=== PATIENT | male | born 1945 | race Caucasian/White ===

== ENCOUNTER → 2016-10-13 | Outpatient (CLI) | payer OTHER ==
[~2016-10-13] MED LIST: ASCORBIC ACID500 M3 PO; ASPIRIN EC325 MG PO; CARBAMAZEPINE200 MG PO; CIPROFLOXACIN500 M1 PO; COUMADIN2.5 MG PO; COUMADIN5 MG PO; CRESTOR40 MG PO; Ceftin PO; Celexa PO; Coumadin Daily Dose PO; DOCUSATE SODIU100 MG PO; ENDOCET 5-3251 EACH PO; EPITOL200 MG PO; EXCEDRIN EXT1 TABLET PO; EXCEDRIN EXTRA1 EACH PO; FERROUS SULFAT325 MG PO; FIBER500 MG PO; FOLIC ACID1 MG PO; FUROSEMIDE20 MG PO; FUROSEMIDE40 MG PO; GABAPENTIN300 MG PO; GABAPENTIN600 MG PO; GLUCOPHAGE500 MG PO; HYDROCODON-ACE1 EACH PO; Lopressor PO; MECLIZINE HCL25 MG PO; METOPROLOL TART25 MG PO; METRONIDAZOLE500 MG PO; NEURONTIN300 MG PO; NEXIUM40 MG PO; Neurontin PO; OXYCODONE HCL10 MG PO; PERCOCET 5/31 TABLET PO; PRAVASTATIN SOD40 MG PO; Percocet 5/325,Endoc PO; SENNA-TIME S T1 EACH PO; SERTRALINE HCL100 MG PO; SERTRALINE HCL50 MG PO; TEGRETOL-XR,CA400 MG PO; TEGretol PO; THERAGRAN1 TABLET PO; VICODIN,LORT1 TABLET PO; VISTARIL25 MG PO; VITAMIN D31000 UNI2 PO; VITAMIN D35000 UNIT PO; WARFARIN SODIUM1 MG PO; WARFARIN SODIUM5 MG PO; WARFARIN SODIUM6 MG PO; Xarelto PO; ZOLOFT50 MG PO; Zocor PO; Zoloft PO; predniSONE PO
== END | disposition home or self-care (01) ==
LOC: RAD 11:26
DX: S50.01XA Contusion of right elbow, initial encounter (principal)
CPT/HCPCS: 73080

== ENCOUNTER 2017-01-23 10:33 | Day surgery (SDC) | payer OTHER ==
[~2017-01-23] VITALS: Ht 177.8 cm; Wt 124.2 kg
[~2017-01-23 10:33] MED LIST changes: +PROTONIX20 MG PO; +XARELTO20 MG PO
== END 2017-01-23 12:42 | disposition home or self-care (01) ==
LOC: PAIN 10:33 → SDC 11:15 → PAIN 12:42
PROC: 3E0S33Z Introduction of Anti-inflammatory into Epidural Space, Percutaneous Approach (ICD-10-PCS; principal; 2017-01-23)
DX: M54.16 Radiculopathy, lumbar region (principal); F41.9 Anxiety disorder, unspecified; I48.91 Unspecified atrial fibrillation; M19.90 Unspecified osteoarthritis, unspecified site; K21.0 Gastro-esophageal reflux disease with esophagitis; E11.9 Type 2 diabetes mellitus without complications; E78.5 Hyperlipidemia, unspecified; E66.01 Morbid (severe) obesity due to excess calories; G47.30 Sleep apnea, unspecified; Z96.649 Presence of unspecified artificial hip joint; Z79.01 Long term (current) use of anticoagulants; Z88.8 Allergy status to other drugs, medicaments and biological substances
CPT/HCPCS: J1030; J2250; J3010

== ENCOUNTER 2017-03-07 09:08 | Day surgery (SDC) | payer OTHER ==
[~2017-03-07] VITALS: Ht 154.9 cm; Wt 124.2 kg
== END 2017-03-07 11:48 | disposition home or self-care (01) ==
LOC: PAIN 09:08 → SDC 09:45 → PAIN 11:48
DX: M47.26 Other spondylosis with radiculopathy, lumbar region (principal); K21.9 Gastro-esophageal reflux disease without esophagitis; I48.91 Unspecified atrial fibrillation; N40.0 Benign prostatic hyperplasia without lower urinary tract symptoms; E66.01 Morbid (severe) obesity due to excess calories; Z68.39 Body mass index [BMI] 39.0-39.9, adult; G40.909 Epilepsy, unspecified, not intractable, without status epilepticus; G47.30 Sleep apnea, unspecified; Z79.01 Long term (current) use of anticoagulants; Z79.82 Long term (current) use of aspirin
CPT/HCPCS: J1030; J2250; J3010

== ENCOUNTER → 2017-03-16 | Outpatient (CLI) | payer OTHER | END | disposition home or self-care (01) | LOC: MRI 09:58 → RAD 11:00 → MRI 11:00 | DX: M25.551 Pain in right hip (principal); M70.71 Other bursitis of hip, right hip | CPT/HCPCS: 73721 ==

== ENCOUNTER → 2017-04-07 | Outpatient (CLI) | payer OTHER | END | disposition home or self-care (01) | LOC: RAD 04-06 11:00 → MRI 09:50 → RAD 11:00 | DX: G95.19 Other vascular myelopathies (principal); M48.06 Spinal stenosis, lumbar region; M51.27 Other intervertebral disc displacement, lumbosacral region; G96.8 Other specified disorders of central nervous system; M99.83 Other biomechanical lesions of lumbar region | CPT/HCPCS: 72148 ==

== ENCOUNTER 2017-04-19 09:33 | Observation (INO) | payer OTHER ==
[~2017-04-19] VITALS: Ht 177.8 cm; Wt 117.7 kg
[~2017-04-19 09:33] MED LIST changes: +PRAVACHOL20 MG PO
[2017-04-19 10:09] LABS: EOSINOPHIL (%) 6.5 % (0-5); EOSINOPHIL COUNT 0.2 K/uL (0-0.3); HEMATOCRIT 35.7 % (38.0-50.0); IMMATURE GRANULOCYTE (%) 0.6 % (0.0-0.7); INSTRUMENT ABS NEUTROPHIL CT 1.4 K/uL; LYMPHOCYTE COUNT 1.2 K/uL (1.0-2.8); MCH 26.4 PG (29.0-34.0); MCHC 32.5 G/DL (30.0-36.0); MCV 81.1 FL (86-99); MEAN PLAT.VOLUME 8.6 uM^3 (9.0-12.4); MONOCYTE (%) 13.4 % (3-12); MONOCYTE COUNT 0.4 K/uL (0-0.8); NEUTROPHIL (%) 42.3 % (45-76); NEUTROPHIL COUNT 1.4 K/uL (1.8-6.4); PLATELET COUNT 278 K/uL (156-360); RBC DIS.WIDTH-CV 17.2 % (11.8-14.6); RBC DIS.WIDTH-SD 50.3 % (39-53); WHITE BLOOD COUNT 3.2 K/uL (4.1-10.2)
[2017-04-19 10:17] LABS: INTER. NORMALIZED RATIO 1.3; PROTHROMBIN TIME 13.9 SEC (10.2-12.9)
[2017-04-19 10:20] LABS: PTT 32.6 SEC (25-37)
[2017-04-19 10:22] LABS: CHLORIDE 104 mEq/L (99-109); POTASSIUM 3.4 mEq/L (3.7-5.4); SODIUM 139 mEq/L (136-147)
[2017-04-19 10:24] LABS: GLUCOSE 114 mg/dL (70-99)
[2017-04-19 10:25] LABS: ANION GAP 9 MEQ/L (2-14)
[2017-04-19 10:28] LABS: GFR ESTIMATE (CALCULATED) > 59 mL/min/
[2017-04-19 10:29] LABS: UREA NITROGEN (BUN) 10 mg/dL (9-23)
[2017-04-19 10:34] LABS: TROP-I INTERPRETATION NEGATIVE; TROPONIN-I < 0.01 ng/mL (0.0-0.30)
[2017-04-19] MEDS ORDERED: ZOFRAN4 MG PO (14:01)
[2017-04-19] MEDS ORDERED: PERCOCET 10/1 TABLET PO (14:03)
[2017-04-19] MEDS ORDERED: VERAPAMIL HCL180 MG PO (14:05)
[2017-04-19] MEDS ORDERED: NEXIUM40 MG PO (14:08)
[2017-04-19 16:15] VITALS: BP 139/85
[2017-04-19 17:15] LABS: TROP-I INTERPRETATION NEGATIVE; TROPONIN-I 0.01 ng/mL (0.0-0.30)
[2017-04-19 20:05] VITALS: BP 121/74
[2017-04-19 23:30] LABS: TROP-I INTERPRETATION NEGATIVE; TROPONIN-I < 0.01 ng/mL (0.0-0.30)
[2017-04-20] VITALS: BP 143/74
[2017-04-20 04:33] VITALS: BP 148/84
[2017-04-20 05:48] LABS: EOSINOPHIL (%) 7.4 % (0-5); EOSINOPHIL COUNT 0.3 K/uL (0-0.3); HEMATOCRIT 32.8 % (38.0-50.0); IMM.RETIC FRACTION 13.3 % (3-19); IMMATURE GRANULOCYTE (%) 0.3 % (0.0-0.7); INSTRUMENT ABS NEUTROPHIL CT 1.3 K/uL; LYMPHOCYTE COUNT 1.4 K/uL (1.0-2.8); MCH 27.2 PG (29.0-34.0); MCHC 32.6 G/DL (30.0-36.0); MCV 83.5 FL (86-99); MEAN PLAT.VOLUME 9.2 uM^3 (9.0-12.4); MONOCYTE (%) 12.7 % (3-12); MONOCYTE COUNT 0.4 K/uL (0-0.8); NEUTROPHIL (%) 37.3 % (45-76); NEUTROPHIL COUNT 1.3 K/uL (1.8-6.4); PLATELET COUNT 260 K/uL (156-360); RBC DIS.WIDTH-CV 17.6 % (11.8-14.6); RBC DIS.WIDTH-SD 53.5 % (39-53); RED BLOOD COUNT 3.93 M/uL (4.00-5.50); RETIC HGB EQUIVALENT 29.7 (28-36); WHITE BLOOD COUNT 3.4 K/uL (4.1-10.2)
[2017-04-20 06:15] LABS: ANION GAP 8 MEQ/L (2-14); CHLORIDE 103 MEQ/L (99-109); GFR ESTIMATE (CALCULATED) > 59 mL/min/; GLUCOSE 102 mg/dL (70-99); LACTATE DEHYDROGENASE 147 IU/L (20-246); POTASSIUM 3.8 MEQ/L (3.7-5.4); SAMPLE HEMOLYSIS CHECK 0; SAMPLE ICTERIC CHECK 0; SAMPLE LIPEMIA CHECK 0; SODIUM 139 MEQ/L (136-147); UREA NITROGEN (BUN) 8 mg/dL (9-23)
[2017-04-20 07:56] VITALS: BP 131/76
== END 2017-04-20 14:27 | disposition home or self-care (01) ==
LOC: EME 09:33 → EDOF 14:31 → 5WEST 14:31 → ENRESERV 14:31 → EDOF 14:31 → ENRESERV 14:53 → 5WEST 15:58 → ENPENDDIS 04-20 → 5WEST 04-20 14:27
PROVIDERS: Emergency Medicine; Internal Medicine; Internal Medicine Medical Oncology
DX: R07.9 Chest pain, unspecified (principal); D64.9 Anemia, unspecified; D72.819 Decreased white blood cell count, unspecified; I48.91 Unspecified atrial fibrillation; Z79.01 Long term (current) use of anticoagulants; N40.0 Benign prostatic hyperplasia without lower urinary tract symptoms; R73.03 Prediabetes; E55.9 Vitamin D deficiency, unspecified; E66.9 Obesity, unspecified; Z68.37 Body mass index [BMI] 37.0-37.9, adult; F32.9 Major depressive disorder, single episode, unspecified; K20.9 Esophagitis, unspecified; G89.29 Other chronic pain; M54.5 Low back pain; G47.30 Sleep apnea, unspecified; Z82.49 Family history of ischemic heart disease and other diseases of the circulatory system; Z88.8 Allergy status to other drugs, medicaments and biological substances
CPT/HCPCS: 71010; 71275; 80048; 83615; 84484; 85025; 85045; 85610; 85730; 93005; 99281; 99285; G0378; J2270; J2405; J7030

== ENCOUNTER 2017-04-24 07:05 | Day surgery (SDC) | payer OTHER ==
[~2017-04-24] VITALS: Ht 177.8 cm; Wt 124.0 kg
[~2017-04-24 07:05] MED LIST changes: +PERCOCET 10/1 TABLET PO; +VERAPAMIL HCL180 MG PO; +ZOFRAN4 MG PO
== END 2017-04-24 08:51 | disposition home or self-care (01) ==
LOC: PAIN 07:05 → SDC 07:45 → PAIN 08:51
PROC: 3E0S33Z Introduction of Anti-inflammatory into Epidural Space, Percutaneous Approach (ICD-10-PCS; principal; 2017-04-24)
DX: M47.26 Other spondylosis with radiculopathy, lumbar region (principal); F41.9 Anxiety disorder, unspecified; M51.16 Intervertebral disc disorders with radiculopathy, lumbar region; M51.17 Intervertebral disc disorders with radiculopathy, lumbosacral region; M48.06 Spinal stenosis, lumbar region; I48.91 Unspecified atrial fibrillation; N40.0 Benign prostatic hyperplasia without lower urinary tract symptoms; Z79.01 Long term (current) use of anticoagulants; E66.01 Morbid (severe) obesity due to excess calories; Z68.39 Body mass index [BMI] 39.0-39.9, adult; G40.909 Epilepsy, unspecified, not intractable, without status epilepticus; Z96.649 Presence of unspecified artificial hip joint; Z88.8 Allergy status to other drugs, medicaments and biological substances
CPT/HCPCS: J1030; J2250; J3010

== ENCOUNTER 2017-06-13 07:53 | Inpatient (IN) | payer OTHER ==
[~2017-06-13] VITALS: Ht 177.8 cm; Wt 121.0 kg
[2017-06-13 08:18] VITALS: BP 121/84
[2017-06-13 08:44] LABS: POINT-OF-CARE METER ID UU14174212
[2017-06-13 09:29] LABS: INTER. NORMALIZED RATIO 1.2; PROTHROMBIN TIME 13.3 SEC (10.2-12.9)
[2017-06-13 14:47] VITALS: BP 120/69
[2017-06-13 16:02] VITALS: BP 141/74
[2017-06-13 20:31] VITALS: BP 126/73
[2017-06-14 00:32] VITALS: BP 125/82
[2017-06-14 03:51] VITALS: BP 122/68
[2017-06-14 08:30] VITALS: BP 127/82
[2017-06-14 11:52] VITALS: BP 117/77
[2017-06-14 16:30] VITALS: BP 123/68
[2017-06-14 23:18] VITALS: BP 144/74
[2017-06-15 07:58] VITALS: BP 131/75
[2017-06-15 11:43] VITALS: BP 131/77
[2017-06-15 15:45] VITALS: BP 127/69
[2017-06-16 08:00] VITALS: BP 133/65
== END 2017-06-16 13:10 | disposition home health service (06) | DRG 520 ==
LOC: SDC 07:53 → 2EAST 12:26 → 3EAST 12:26 → ENRESERV 12:49 → 2SOUTH 13:00 → ENRESERV 13:02 → SDC 13:21 → 3EAST 14:30
PROVIDERS: Anesthesiology; Neurological Surgery
DX: M48.062 Spinal stenosis, lumbar region with neurogenic claudication (principal); M51.36 Other intervertebral disc degeneration, lumbar region; M47.817 Spondylosis without myelopathy or radiculopathy, lumbosacral region; M21.371 Foot drop, right foot; I48.91 Unspecified atrial fibrillation; N40.0 Benign prostatic hyperplasia without lower urinary tract symptoms; K21.9 Gastro-esophageal reflux disease without esophagitis; I10 Essential (primary) hypertension; E78.00 Pure hypercholesterolemia, unspecified; F32.9 Major depressive disorder, single episode, unspecified; Z86.718 Personal history of other venous thrombosis and embolism; Z79.82 Long term (current) use of aspirin; Z95.828 Presence of other vascular implants and grafts; Z79.01 Long term (current) use of anticoagulants
CPT/HCPCS: 72020; 76000; 82948; 85610; 97530 GO; 97530 GP; J0131; J0330; J0690; J1100; J1170; J2270; J2405; J2710; J3010; J3480

== ENCOUNTER → 2017-07-31 | Outpatient (CLI) | payer OTHER | END | disposition home or self-care (01) | LOC: MRI 13:05 → RAD 13:30 | DX: M48.061 Spinal stenosis, lumbar region without neurogenic claudication (principal); M51.36 Other intervertebral disc degeneration, lumbar region; G96.8 Other specified disorders of central nervous system; M51.26 Other intervertebral disc displacement, lumbar region; M53.86 Other specified dorsopathies, lumbar region; Z98.890 Other specified postprocedural states | CPT/HCPCS: 72158 ==

== ENCOUNTER 2017-08-05 03:00 | Observation (INO) | payer OTHER ==
[~2017-08-05] VITALS: Ht 177.8 cm; Wt 95.4 kg
[2017-08-05 06:26] LABS: HEMATOCRIT 36.9 % (38.0-50.0); MCH 28.4 PG (29.0-34.0); MCHC 33.3 G/DL (30.0-36.0); MCV 85.2 FL (86-99); MEAN PLAT.VOLUME 8.7 uM^3 (9.0-12.4); PLATELET COUNT 306 K/uL (156-360); RBC DIS.WIDTH-CV 18.5 % (11.8-14.6); RBC DIS.WIDTH-SD 57.8 % (39-53); RED BLOOD COUNT 4.33 M/uL (4.00-5.50); WHITE BLOOD COUNT 4.6 K/uL (4.1-10.2)
[2017-08-05 06:32] LABS: CHLORIDE 102 mEq/L (99-109); POTASSIUM 3.5 mEq/L (3.7-5.4); SODIUM 135 mEq/L (136-147)
[2017-08-05 06:34] LABS: GLUCOSE 107 mg/dL (70-99)
[2017-08-05 06:35] LABS: ANION GAP 12 MEQ/L (2-14)
[2017-08-05 06:38] LABS: GFR ESTIMATE (CALCULATED) > 59 mL/min/
[2017-08-05 06:39] LABS: UREA NITROGEN (BUN) 6 mg/dL (9-23)
[2017-08-05 07:43] LABS: MAGNESIUM 1.7 mg/dl (1.3-2.7); SAMPLE HEMOLYSIS CHECK 0; SAMPLE ICTERIC CHECK 0; SAMPLE LIPEMIA CHECK 0
[2017-08-05 07:52] LABS: TROP-I INTERPRETATION NEGATIVE; TROPONIN-I 0.02 ng/mL (0.0-0.30)
[2017-08-05 11:43] VITALS: BP 151/87
[2017-08-05 11:56] LABS: HEMATOCRIT 36.8 % (38.0-50.0); MCH 28.9 PG (29.0-34.0); MCHC 33.4 G/DL (30.0-36.0); MCV 86.6 FL (86-99); MEAN PLAT.VOLUME 8.8 uM^3 (9.0-12.4); PLATELET COUNT 294 K/uL (156-360); RBC DIS.WIDTH-CV 18.6 % (11.8-14.6); RBC DIS.WIDTH-SD 59.4 % (39-53); RED BLOOD COUNT 4.25 M/uL (4.00-5.50); WHITE BLOOD COUNT 3.8 K/uL (4.1-10.2)
[2017-08-05 12:16] LABS: Estimated Average Glucose 117 mg/dL (70-123); HEMOGLOBIN A1c (GLYCOHEMOGLOB) 5.7 % HGB (Below 5.7)
[2017-08-05 12:20] LABS: ALKALINE PHOSPHATASE 85 IU/L (3-129); ANION GAP 11 MEQ/L (2-14); CHLORIDE 103 MEQ/L (99-109); GFR ESTIMATE (CALCULATED) > 59 mL/min/; GLUCOSE 102 mg/dL (70-99); HDL CHOLESTEROL 54 MG/DL (Desirable>=40); LDL CHOLESTEROL 108 mg/dL (Desirable<100); NON-HDL CHOLESTEROL 126 mg/dL (Desirable<160); POTASSIUM 3.7 MEQ/L (3.7-5.4); SAMPLE HEMOLYSIS CHECK 0; SAMPLE ICTERIC CHECK 0; SAMPLE LIPEMIA CHECK 0; SODIUM 139 MEQ/L (136-147); TOTAL BILIRUBIN 0.4 MG/DL (0.0-1.0); TOTAL CHOLESTEROL 180 mg/dL (Desirable<200); TRIGLYCERIDES 91 MG/DL (Normal: <150); UREA NITROGEN (BUN) 6 mg/dL (9-23)
[2017-08-05 15:12] VITALS: BP 130/72
[2017-08-05 20:00] VITALS: BP 102/72
[2017-08-05 23:51] VITALS: BP 138/88
[2017-08-06 04:11] VITALS: BP 155/90
[2017-08-06 07:15] VITALS: BP 138/93
[2017-08-06] MEDS ORDERED: AMITRIPTYLINE H10 MG PO (11:25)
== END 2017-08-06 13:38 | disposition home or self-care (01) ==
LOC: EME → EDBD 03:00 → EME 03:00 → 5WEST 09:16 → EDOF 09:16 → ENRESERV 09:17 → 5WEST 11:27 → ENPENDDIS 08-06 → 5WEST 08-06 13:38
PROVIDERS: Physician Assistant; Physician Assistant Medical
DX: G45.9 Transient cerebral ischemic attack, unspecified (principal); I48.91 Unspecified atrial fibrillation; Z79.01 Long term (current) use of anticoagulants; R73.03 Prediabetes; F32.9 Major depressive disorder, single episode, unspecified; M54.17 Radiculopathy, lumbosacral region; K21.0 Gastro-esophageal reflux disease with esophagitis; G43.809 Other migraine, not intractable, without status migrainosus; N40.0 Benign prostatic hyperplasia without lower urinary tract symptoms; E55.9 Vitamin D deficiency, unspecified; E66.9 Obesity, unspecified; G47.30 Sleep apnea, unspecified; G89.29 Other chronic pain; E87.6 Hypokalemia; I10 Essential (primary) hypertension; E78.5 Hyperlipidemia, unspecified; M21.371 Foot drop, right foot; Z98.890 Other specified postprocedural states; Z88.8 Allergy status to other drugs, medicaments and biological substances; Z82.49 Family history of ischemic heart disease and other diseases of the circulatory system
CPT/HCPCS: 70450; 70551; 80048; 80053; 80061; 80156; 83036; 83735; 84484; 85027; 93005; 93880; 99281; 99285; G0378; G8987 GO CJ; G8988 CI; G8989 CJ; J2405; J7030; J7040

== ENCOUNTER 2017-08-07 16:46 | Emergency (ER) | payer OTHER ==
[~2017-08-07] VITALS: Ht 177.8 cm; Wt 97.8 kg
[~2017-08-07 16:46] MED LIST changes: +AMITRIPTYLINE H10 MG PO
[2017-08-07 20:52] VITALS: BP 131/93
== END 2017-08-07 20:53 | disposition home or self-care (01) ==
LOC: EME 16:46
DX: S09.90XA Unspecified injury of head, initial encounter (principal); S83.91XA Sprain of unspecified site of right knee, initial encounter; S43.402A Unspecified sprain of left shoulder joint, initial encounter; W01.198A Fall on same level from slipping, tripping and stumbling with subsequent striking against other object, initial encounter; Y93.01 Activity, walking, marching and hiking; E78.5 Hyperlipidemia, unspecified; R56.9 Unspecified convulsions; Z86.718 Personal history of other venous thrombosis and embolism; Z96.642 Presence of left artificial hip joint; Z96.659 Presence of unspecified artificial knee joint; Z88.5 Allergy status to narcotic agent; Z88.8 Allergy status to other drugs, medicaments and biological substances
CPT/HCPCS: 70450; 73030; 73564; 99281; 99285

== ENCOUNTER → 2017-08-15 | Outpatient (CLI) | payer OTHER | END | disposition home or self-care (01) | LOC: EEG 09:59 | DX: R94.01 Abnormal electroencephalogram [EEG] (principal) | CPT/HCPCS: 95819 ==

== ENCOUNTER 2017-12-07 12:14 | Inpatient (IN) | payer OTHER ==
[~2017-12-07] VITALS: Ht 177.8 cm; Wt 109.3 kg
[2017-12-07 13:43] LABS: HEMATOCRIT 29.9 % (38.0-50.0); HEMOGLOBIN 9.5 G/DL (12.5-16.6); MCH 24.4 PG (29.0-34.0); MCHC 31.8 G/DL (30.0-36.0); MCV 76.7 FL (86-99); PLATELET COUNT 282 K/uL (156-360); RBC DIS.WIDTH-CV 19.1 % (11.8-14.6); RBC DIS.WIDTH-SD 52.5 % (39-53); WHITE BLOOD COUNT 3.2 K/uL (4.1-10.2)
[2017-12-07 14:14] LABS: CHLORIDE 105 MEQ/L (99-109); CREATININE 0.7 MG/DL (0.6-1.3); GFR ESTIMATE (CALCULATED) > 59 mL/min/ (58.99-99999); GLUCOSE 106 mg/dL (70-99); POTASSIUM 4.2 MEQ/L (3.7-5.4); SODIUM 139 MEQ/L (136-147); UREA NITROGEN (BUN) 16 mg/dL (9-23)
[2017-12-07 14:16] LABS: TROP-I INTERPRETATION NEGATIVE; TROPONIN-I < 0.01 ng/mL (0.0-0.30)
[2017-12-07 14:38] LABS: INTER. NORMALIZED RATIO 1.7
[2017-12-07 14:41] LABS: PTT 38.2 SEC (25-37)
[2017-12-07 15:30] LABS: HEMATOCRIT 28.8 % (38.0-50.0); HEMOGLOBIN 9.2 G/DL (12.5-16.6); MCH 24.4 PG (29.0-34.0); MCHC 31.9 G/DL (30.0-36.0); MCV 76.4 FL (86-99); PLATELET COUNT 260 K/uL (156-360); RBC DIS.WIDTH-CV 19.1 % (11.8-14.6); RBC DIS.WIDTH-SD 52.3 % (39-53); RED BLOOD COUNT 3.77 M/uL (4.00-5.50); WHITE BLOOD COUNT 3.4 K/uL (4.1-10.2)
[2017-12-07] MEDS ORDERED: AMITRIPTYLINE H10 MG PO (17:27)
[2017-12-07] MEDS ORDERED: LAMICTAL100 MG PO (17:27)
[2017-12-07] MEDS ORDERED: IBUPROFEN200 M1 PO (17:28)
[2017-12-07 17:38] VITALS: BP 138/83
[2017-12-07 19:30] VITALS: BP 117/70
[2017-12-07 20:03] LABS: TROP-I INTERPRETATION NEGATIVE; TROPONIN-I < 0.01 ng/mL (0.0-0.30)
[2017-12-07 20:55] LABS: IRON 23 MCG/DL (35-150); TRANSFERRIN (TIBC) 238.3 mg/dL (215-380); TRANSFERRIN SATUR. 10 % (20-55)
[2017-12-07 21:11] LABS: FERRITIN 14 NG/ML (22-322)
[2017-12-07 23:42] VITALS: BP 139/78
[2017-12-08] VITALS (13 sets, daily range): BP systolic 119–153; BP diastolic 60–86
[2017-12-08 02:06] LABS: TROP-I INTERPRETATION NEGATIVE; TROPONIN-I < 0.01 ng/mL (0.0-0.30)
[2017-12-08 06:31] LABS: HEMATOCRIT 27.4 % (38.0-50.0); HEMOGLOBIN 8.5 G/DL (12.5-16.6); MCH 23.6 PG (29.0-34.0); MCV 76.1 FL (86-99); PLATELET COUNT 242 K/uL (156-360); RBC DIS.WIDTH-CV 18.7 % (11.8-14.6); WHITE BLOOD COUNT 3.1 K/uL (4.1-10.2)
[2017-12-08 06:35] LABS: INTER. NORMALIZED RATIO 1.3
[2017-12-08 06:52] LABS: TROP-I INTERPRETATION NEGATIVE; TROPONIN-I < 0.01 ng/mL (0.0-0.30)
[2017-12-08 06:56] LABS: CARBAMAZEPINE (TEGRETOL) 8.4 MCG/ML (4.0-12.0); CHLORIDE 106 MEQ/L (99-109); CREATININE 0.7 MG/DL (0.6-1.3); GFR ESTIMATE (CALCULATED) > 59 mL/min/ (58.99-99999); GLUCOSE 105 mg/dL (70-99); POTASSIUM 4.2 MEQ/L (3.7-5.4); SODIUM 141 MEQ/L (136-147); UREA NITROGEN (BUN) 10 mg/dL (9-23)
[2017-12-08 15:49] LABS: BASOPHIL (%) 1.2 % (0-1); EOSINOPHIL (%) 5.3 % (0-5); EOSINOPHIL COUNT 0.2 K/uL (0-0.3); HEMATOCRIT 30.6 % (38.0-50.0); HEMOGLOBIN 9.5 G/DL (12.5-16.6); IMMATURE GRANULOCYTE (%) 0.3 % (0.0-0.7); LYMPHOCYTE (%) 38.3 % (15-42); LYMPHOCYTE COUNT 1.3 K/uL (1.0-2.8); MCH 23.9 PG (29.0-34.0); MCV 76.9 FL (86-99); MONOCYTE (%) 16.1 % (3-12); MONOCYTE COUNT 0.6 K/uL (0-0.8); NEUTROPHIL (%) 38.8 % (45-76); NEUTROPHIL COUNT 1.3 K/uL (1.8-6.4); PLATELET COUNT 250 K/uL (156-360); RBC DIS.WIDTH-CV 18.4 % (11.8-14.6); RBC DIS.WIDTH-SD 50.9 % (39-53); RED BLOOD COUNT 3.98 M/uL (4.00-5.50); WHITE BLOOD COUNT 3.4 K/uL (4.1-10.2)
[2017-12-08 21:01] LABS: HEMATOCRIT 31.1 % (38.0-50.0); HEMOGLOBIN 10.1 G/DL (12.5-16.6); MCHC 32.5 G/DL (30.0-36.0); PLATELET COUNT 235 K/uL (156-360); RBC DIS.WIDTH-CV 18.8 % (11.8-14.6); RBC DIS.WIDTH-SD 51.8 % (39-53); RED BLOOD COUNT 4.04 M/uL (4.00-5.50); WHITE BLOOD COUNT 3.4 K/uL (4.1-10.2)
[2017-12-09 02:22] LABS: BASOPHIL (%) 0.8 % (0-1); EOSINOPHIL (%) 4.8 % (0-5); EOSINOPHIL COUNT 0.2 K/uL (0-0.3); HEMATOCRIT 32.8 % (38.0-50.0); HEMOGLOBIN 10.6 G/DL (12.5-16.6); IMMATURE GRANULOCYTE (%) 0.2 % (0.0-0.7); MCH 24.6 PG (29.0-34.0); MCHC 32.3 G/DL (30.0-36.0); MCV 76.1 FL (86-99); MONOCYTE (%) 13.5 % (3-12); MONOCYTE COUNT 0.7 K/uL (0-0.8); NEUTROPHIL (%) 39.7 % (45-76); NEUTROPHIL COUNT 1.9 K/uL (1.8-6.4); PLATELET COUNT 248 K/uL (156-360); RBC DIS.WIDTH-CV 18.6 % (11.8-14.6); RBC DIS.WIDTH-SD 51.1 % (39-53); RED BLOOD COUNT 4.31 M/uL (4.00-5.50); WHITE BLOOD COUNT 4.8 K/uL (4.1-10.2)
[2017-12-09 03:52] VITALS: BP 153/67
[2017-12-09 05:38] LABS: HEMATOCRIT 32.3 % (38.0-50.0); HEMOGLOBIN 10.2 G/DL (12.5-16.6); MCH 24.3 PG (29.0-34.0); MCHC 31.6 G/DL (30.0-36.0); MCV 76.9 FL (86-99); PLATELET COUNT 243 K/uL (156-360); RBC DIS.WIDTH-CV 18.6 % (11.8-14.6); RBC DIS.WIDTH-SD 51.4 % (39-53); WHITE BLOOD COUNT 3.9 K/uL (4.1-10.2)
[2017-12-09 07:45] VITALS: BP 126/60
[2017-12-09 12:18] VITALS: BP 155/85
[2017-12-09 14:16] LABS: BASOPHIL (%) 0.6 % (0-1); EOSINOPHIL (%) 2.7 % (0-5); EOSINOPHIL COUNT 0.1 K/uL (0-0.3); HEMATOCRIT 34.6 % (38.0-50.0); HEMOGLOBIN 10.9 G/DL (12.5-16.6); IMMATURE GRANULOCYTE (%) 0.6 % (0.0-0.7); LYMPHOCYTE (%) 19.8 % (15-42); LYMPHOCYTE COUNT 0.9 K/uL (1.0-2.8); MCH 24.1 PG (29.0-34.0); MCHC 31.5 G/DL (30.0-36.0); MCV 76.5 FL (86-99); MONOCYTE (%) 10.7 % (3-12); MONOCYTE COUNT 0.5 K/uL (0-0.8); NEUTROPHIL (%) 65.6 % (45-76); NEUTROPHIL COUNT 3.1 K/uL (1.8-6.4); PLATELET COUNT 259 K/uL (156-360); RBC DIS.WIDTH-CV 18.6 % (11.8-14.6); RBC DIS.WIDTH-SD 50.6 % (39-53); RED BLOOD COUNT 4.52 M/uL (4.00-5.50); WHITE BLOOD COUNT 4.8 K/uL (4.1-10.2)
[2017-12-09 16:06] LABS: STOOL OCCULT BLD 1ST SPECIMEN NEGATIVE
[2017-12-09 16:23] VITALS: BP 128/62
[2017-12-09 20:00] VITALS: BP 122/70
[2017-12-09 20:00] LABS: HEMATOCRIT 32.6 % (38.0-50.0); HEMOGLOBIN 10.2 G/DL (12.5-16.6); MCHC 31.3 G/DL (30.0-36.0); MCV 76.7 FL (86-99); PLATELET COUNT 241 K/uL (156-360); RBC DIS.WIDTH-CV 18.5 % (11.8-14.6); RBC DIS.WIDTH-SD 50.4 % (39-53); RED BLOOD COUNT 4.25 M/uL (4.00-5.50); WHITE BLOOD COUNT 4.5 K/uL (4.1-10.2)
[2017-12-09 23:43] VITALS: BP 141/71
[2017-12-10 02:42] LABS: BASOPHIL (%) 0.6 % (0-1); EOSINOPHIL (%) 3.4 % (0-5); EOSINOPHIL COUNT 0.2 K/uL (0-0.3); HEMATOCRIT 34.3 % (38.0-50.0); IMMATURE GRANULOCYTE (%) 0.4 % (0.0-0.7); LYMPHOCYTE (%) 29.3 % (15-42); LYMPHOCYTE COUNT 1.4 K/uL (1.0-2.8); MCH 24.7 PG (29.0-34.0); MCHC 32.1 G/DL (30.0-36.0); MCV 76.9 FL (86-99); MONOCYTE COUNT 0.7 K/uL (0-0.8); NEUTROPHIL (%) 51.3 % (45-76); NEUTROPHIL COUNT 2.4 K/uL (1.8-6.4); PLATELET COUNT 260 K/uL (156-360); RBC DIS.WIDTH-CV 19.3 % (11.8-14.6); RBC DIS.WIDTH-SD 52.5 % (39-53); RED BLOOD COUNT 4.46 M/uL (4.00-5.50); WHITE BLOOD COUNT 4.7 K/uL (4.1-10.2)
[2017-12-10 03:41] VITALS: BP 140/78
[2017-12-10 07:34] VITALS: BP 116/64
[2017-12-10 08:58] LABS: HEMATOCRIT 33.9 % (38.0-50.0); HEMOGLOBIN 10.7 G/DL (12.5-16.6); MCH 24.3 PG (29.0-34.0); MCHC 31.6 G/DL (30.0-36.0); PLATELET COUNT 248 K/uL (156-360); RBC DIS.WIDTH-CV 19.5 % (11.8-14.6); RBC DIS.WIDTH-SD 53.1 % (39-53); WHITE BLOOD COUNT 3.6 K/uL (4.1-10.2)
[2017-12-10 11:10] VITALS: BP 123/63
[2017-12-10 15:10] VITALS: BP 135/78
[2017-12-10 20:00] VITALS: BP 127/66
[2017-12-10 23:39] VITALS: BP 120/65
[2017-12-11 03:56] VITALS: BP 128/62
[2017-12-11 06:09] LABS: BASOPHIL (%) 0.9 % (0-1); EOSINOPHIL (%) 2.4 % (0-5); EOSINOPHIL COUNT 0.1 K/uL (0-0.3); HEMATOCRIT 34.5 % (38.0-50.0); HEMOGLOBIN 10.9 G/DL (12.5-16.6); IMMATURE GRANULOCYTE (%) 0.2 % (0.0-0.7); LYMPHOCYTE (%) 24.7 % (15-42); LYMPHOCYTE COUNT 1.1 K/uL (1.0-2.8); MCH 24.3 PG (29.0-34.0); MCHC 31.6 G/DL (30.0-36.0); MONOCYTE (%) 14.5 % (3-12); MONOCYTE COUNT 0.7 K/uL (0-0.8); NEUTROPHIL (%) 57.3 % (45-76); NEUTROPHIL COUNT 2.6 K/uL (1.8-6.4); PLATELET COUNT 263 K/uL (156-360); RBC DIS.WIDTH-CV 19.9 % (11.8-14.6); RBC DIS.WIDTH-SD 53.8 % (39-53); RED BLOOD COUNT 4.48 M/uL (4.00-5.50); WHITE BLOOD COUNT 4.6 K/uL (4.1-10.2)
[2017-12-11 06:38] LABS: CHLORIDE 103 MEQ/L (99-109); CREATININE 0.7 MG/DL (0.6-1.3); GFR ESTIMATE (CALCULATED) > 59 mL/min/ (58.99-99999); GLUCOSE 94 mg/dL (70-99); SODIUM 139 MEQ/L (136-147); UREA NITROGEN (BUN) 8 mg/dL (9-23)
[2017-12-11 07:58] VITALS: BP 136/83
[2017-12-11 11:28] VITALS: BP 151/82
[2017-12-11 19:45] VITALS: BP 139/76
[2017-12-12 00:03] VITALS: BP 121/58
[2017-12-12 04:04] VITALS: BP 107/68
[2017-12-12 08:10] VITALS: BP 118/59
[2017-12-12 08:30] VITALS: BP 118/59
[2017-12-12] MEDS ORDERED: PANTOPRAZOLE SO40 MG PO (13:02)
[2017-12-12] MEDS ORDERED: FERROUS SULFAT325 MG PO (13:02)
[2017-12-12 13:16] VITALS: BP 140/78
== END 2017-12-12 14:24 | disposition home or self-care (01) | DRG 378 ==
LOC: EME 12:14 → EDOF 16:32 → 5WEST 16:32 → EDOF 16:32 → ENRESERV 16:42 → EDOF 16:54 → ENRESERV 16:56 → 5WEST 17:31 → ENPENDDIS 12-12 → 5WEST 12-12 14:24
PROVIDERS: Emergency Medicine Emergency Medical Services; Hospitalist; Internal Medicine; Specialist
DX: K92.2 Gastrointestinal hemorrhage, unspecified (principal); D62 Acute posthemorrhagic anemia; K63.3 Ulcer of intestine; E66.9 Obesity, unspecified; Z68.34 Body mass index [BMI] 34.0-34.9, adult; K29.60 Other gastritis without bleeding; G40.909 Epilepsy, unspecified, not intractable, without status epilepticus; G43.909 Migraine, unspecified, not intractable, without status migrainosus; N40.0 Benign prostatic hyperplasia without lower urinary tract symptoms; K21.9 Gastro-esophageal reflux disease without esophagitis; E78.5 Hyperlipidemia, unspecified; F32.9 Major depressive disorder, single episode, unspecified; I10 Essential (primary) hypertension; I48.2 Chronic atrial fibrillation; Z86.718 Personal history of other venous thrombosis and embolism; Z86.711 Personal history of pulmonary embolism; E11.9 Type 2 diabetes mellitus without complications; Z79.01 Long term (current) use of anticoagulants; Z96.642 Presence of left artificial hip joint; G47.30 Sleep apnea, unspecified; K59.00 Constipation, unspecified; K64.8 Other hemorrhoids; K31.7 Polyp of stomach and duodenum; I27.20 Pulmonary hypertension, unspecified; I08.1 Rheumatic disorders of both mitral and tricuspid valves
CPT/HCPCS: 70450; 71046; 80048; 80156; 82272; 82728; 83540; 84466; 84484; 85014; 85018; 85025; 85025 91; 85027; 85610; 85730; 86850; 86900; 86901; 86920; 88305; 88342 TC; 93005; 93306; 99281; 99285; C9113; G0378; J2354; J7030; J7040; J7643; P9016

== ENCOUNTER 2017-12-16 13:11 | Observation (INO) | payer OTHER ==
[~2017-12-16] VITALS: Ht 177.8 cm; Wt 106.3 kg
[~2017-12-16 13:11] MED LIST changes: +IBUPROFEN200 M1 PO; +LAMICTAL100 MG PO; +PANTOPRAZOLE SO40 MG PO
[2017-12-16 14:56] LABS: HEMATOCRIT 34.8 % (38.0-50.0); HEMOGLOBIN 11.1 G/DL (12.5-16.6); MCH 25.1 PG (29.0-34.0); MCHC 31.9 G/DL (30.0-36.0); MCV 78.7 FL (86-99); PLATELET COUNT 271 K/uL (156-360); RBC DIS.WIDTH-CV 22.1 % (11.8-14.6); RBC DIS.WIDTH-SD 60.4 % (39-53); RED BLOOD COUNT 4.42 M/uL (4.00-5.50); WHITE BLOOD COUNT 3.4 K/uL (4.1-10.2)
[2017-12-16 15:04] LABS: INTER. NORMALIZED RATIO 2.2
[2017-12-16 15:06] LABS: CHLORIDE 104 mEq/L (99-109); POTASSIUM 3.9 mEq/L (3.7-5.4); SODIUM 139 mEq/L (136-147)
[2017-12-16 15:07] LABS: GLUCOSE 98 mg/dL (70-99); PTT 37.9 SEC (25-37)
[2017-12-16 15:08] LABS: BASOPHIL (%) 0.9 % (0-1); EOSINOPHIL (%) 5.1 % (0-5); EOSINOPHIL COUNT 0.2 K/uL (0-0.3); IMMATURE GRANULOCYTE (%) 0.3 % (0.0-0.7); LYMPHOCYTE (%) 30.1 % (15-42); MONOCYTE (%) 10.7 % (3-12); MONOCYTE COUNT 0.4 K/uL (0-0.8); NEUTROPHIL (%) 52.9 % (45-76); NEUTROPHIL COUNT 1.8 K/uL (1.8-6.4)
[2017-12-16 15:11] LABS: CREATININE 0.8 mg/dL (0.6-1.3); GFR ESTIMATE (CALCULATED) > 59 mL/min/ (58.99-99999)
[2017-12-16 15:12] LABS: UREA NITROGEN (BUN) 10 mg/dL (9-23)
[2017-12-16 15:19] LABS: TROP-I INTERPRETATION NEGATIVE; TROPONIN-I 0.01 ng/mL (0.0-0.30)
[2017-12-16] MEDS ORDERED: LAMOTRIGINE100 MG PO (19:04)
[2017-12-16] MEDS ORDERED: OXYCODONE-APAP1 EACH PO (19:05)
[2017-12-16] MEDS ORDERED: PANTOPRAZOLE SO20 MG PO (19:06)
[2017-12-16] MEDS ORDERED: CARBAMAZEPINE200 MG PO (19:07)
[2017-12-16] MEDS ORDERED: PRAVASTATIN SOD40 MG PO (19:09)
[2017-12-16] MEDS ORDERED: LASIX40 MG PO (19:24)
[2017-12-16] MEDS ORDERED: EXCEDRIN EXTRA1 EACH PO (19:25)
[2017-12-16] MEDS ORDERED: NEURONTIN300 MG PO (19:28)
[2017-12-16 20:26] VITALS: BP 116/72
[2017-12-16 20:49] LABS: D-DIMER ELISA < 150.00 ng/mLDDU (<230)
[2017-12-16 20:52] LABS: MAGNESIUM 1.8 mg/dl (1.3-2.7); PHOSPHORUS 3.7 mg/dL (2.5-4.9)
[2017-12-16 20:52] LABS: ALBUMIN 3.6 G/DL (3.2-4.8); ALKALINE PHOSPHATASE 126 IU/L (3-129); ALT (GPT) 8 IU/L (3-49); AST (GOT) 13 IU/L (2-34); DIRECT BILIRUBIN 0.1 mg/dL (0.0-0.3); TOTAL BILIRUBIN 0.3 MG/DL (0.0-1.0); TOTAL PROTEIN 6.9 G/DL (6.4-8.3)
[2017-12-16 23:12] LABS: APPEARANCE CLEAR ((CLEAR)); BILIRUBIN NEGATIVE; BLOOD NEGATIVE; COLOR YELLOW ((YELLOW)); GLUCOSE (STRIP) NEGATIVE; KETONES NEGATIVE; LEUKOCYTES TRACE; NITRITE NEGATIVE; PROTEIN (STRIP) NEGATIVE; SPECIFIC GRAVITY 1.014 (1.000-1.030); UROBILINOGEN 0.2 MG/DL (0.2-1.0)
[2017-12-16 23:32] LABS: BACTERIA NONE SEEN /HPF; EPITHELIAL CELLS RARE /HPF; MUCUS TRACE /LPF; RED BLOOD CELLS 0-5 /HPF (0-5); UCUL ADDED? YES
[2017-12-17] VITALS (7 sets, daily range): BP systolic 109–149; BP diastolic 60–86
[2017-12-17 01:18] LABS: TROP-I INTERPRETATION NEGATIVE; TROPONIN-I < 0.01 ng/mL (0.0-0.30)
[2017-12-17 06:27] LABS: HEMATOCRIT 34.6 % (38.0-50.0); HEMOGLOBIN 10.6 G/DL (12.5-16.6); MCH 24.1 PG (29.0-34.0); MCHC 30.6 G/DL (30.0-36.0); MCV 78.8 FL (86-99); PLATELET COUNT 270 K/uL (156-360); RBC DIS.WIDTH-CV 22.4 % (11.8-14.6); RBC DIS.WIDTH-SD 62.4 % (39-53); RED BLOOD COUNT 4.39 M/uL (4.00-5.50); WHITE BLOOD COUNT 2.9 K/uL (4.1-10.2)
[2017-12-17 06:46] LABS: TROP-I INTERPRETATION NEGATIVE; TROPONIN-I < 0.01 ng/mL (0.0-0.30)
[2017-12-17 07:01] LABS: CHLORIDE 105 MEQ/L (99-109); CREATININE 0.7 MG/DL (0.6-1.3); GFR ESTIMATE (CALCULATED) > 59 mL/min/ (58.99-99999); GLUCOSE 97 mg/dL (70-99); POTASSIUM 4.1 MEQ/L (3.7-5.4); SODIUM 140 MEQ/L (136-147); UREA NITROGEN (BUN) 10 mg/dL (9-23)
[2017-12-17] MEDS ORDERED: LOPRESSOR25 MG PO (10:17)
[2017-12-17] MEDS ORDERED: PANTOPRAZOLE SO20 MG PO (10:20)
[2017-12-18 04:20] VITALS: BP 122/78
[2017-12-18 09:15] VITALS: BP 134/76
== END 2017-12-18 12:00 | disposition home or self-care (01) ==
LOC: EME 13:11 → EDOF 18:48 → 5WEST 18:48 → EDOF 18:48 → ENRESERV 18:49 → 5WEST 20:09
PROVIDERS: Emergency Medicine; Hospitalist
DX: I47.1 Supraventricular tachycardia (principal); I49.3 Ventricular premature depolarization; R53.1 Weakness; D64.9 Anemia, unspecified; I48.1 Persistent atrial fibrillation; E11.9 Type 2 diabetes mellitus without complications; E66.9 Obesity, unspecified; Z68.33 Body mass index [BMI] 33.0-33.9, adult; I25.10 Atherosclerotic heart disease of native coronary artery without angina pectoris; F32.9 Major depressive disorder, single episode, unspecified; K20.9 Esophagitis, unspecified; G47.33 Obstructive sleep apnea (adult) (pediatric); G89.29 Other chronic pain; M54.5 Low back pain; Z87.19 Personal history of other diseases of the digestive system; Z82.49 Family history of ischemic heart disease and other diseases of the circulatory system; Z96.642 Presence of left artificial hip joint; Z86.718 Personal history of other venous thrombosis and embolism; Z95.828 Presence of other vascular implants and grafts; Z88.8 Allergy status to other drugs, medicaments and biological substances; Z88.5 Allergy status to narcotic agent
CPT/HCPCS: 71045; 80048; 80076; 81003; 83735; 84100; 84484; 85025; 85027; 85379; 85610; 85730; 87086; 93005; 99281; 99285; G0378

== ENCOUNTER → 2018-01-19 | Outpatient (CLI) | payer OTHER ==
[~2018-01-19] MED LIST changes: +LAMOTRIGINE100 MG PO; +LASIX40 MG PO; +LOPRESSOR25 MG PO; +OXYCODONE-APAP1 EACH PO; +PANTOPRAZOLE SO20 MG PO
== END | disposition home or self-care (01) ==
LOC: MRI 12:57 → RAD 13:30
DX: M51.36 Other intervertebral disc degeneration, lumbar region (principal); M46.96 Unspecified inflammatory spondylopathy, lumbar region; M51.26 Other intervertebral disc displacement, lumbar region; R93.7 Abnormal findings on diagnostic imaging of other parts of musculoskeletal system
CPT/HCPCS: 72158

== ENCOUNTER → 2018-02-06 | Outpatient (CLI) | payer OTHER | END | disposition home or self-care (01) | LOC: RAD 11:42 | DX: M43.8X6 Other specified deforming dorsopathies, lumbar region (principal) | CPT/HCPCS: 72120 ==

== ENCOUNTER 2018-03-27 03:43 | Inpatient (IN) | payer OTHER ==
[~2018-03-27] VITALS: Ht 177.8 cm; Wt 110.4 kg
[~2018-03-27 03:43] MED LIST changes: +ALPHAGAN 0100 DROP/5 LEFT EYE; +ELIQUIS5 MG PO; +ENDOCET 10-3251 EACH PO; +PRAVACHOL40 MG PO; +PROTONIX40 MG PO
[2018-03-27 05:55] VITALS: BP 122/83
[2018-03-27 15:22] VITALS: BP 124/77
[2018-03-27 19:21] VITALS: BP 110/61
[2018-03-27 23:11] VITALS: BP 99/61
[2018-03-28 03:28] VITALS: BP 103/62
[2018-03-28] MEDS ORDERED: ELIQUIS5 MG PO (07:39)
[2018-03-28] MEDS ORDERED: CYCLOBENZAPRINE10 MG PO (07:42)
[2018-03-28] MEDS ORDERED: ENDOCET 10-3251 EACH PO (07:42)
[2018-03-28 08:23] VITALS: BP 101/68
[2018-03-28 16:28] VITALS: BP 102/54
[2018-03-28 23:45] VITALS: BP 134/71
[2018-03-29 08:11] VITALS: BP 140/71
[2018-03-29 16:11] VITALS: BP 148/75
[2018-03-30 00:29] VITALS: BP 108/70
[2018-03-30 07:36] VITALS: BP 129/72
== END 2018-03-30 14:26 | DRG 460 ==
LOC: 2SOUTH → ENRESERV 03:43 → 2SOUTH 05:19 → 3EAST 05:19 → 2SOUTH 07:31 → ENRESERV 09:44 → 2SOUTH 10:06 → 3EAST 14:37
PROC: 0SB20ZZ Excision of Lumbar Vertebral Disc, Open Approach (ICD-10-PCS; principal; 2018-03-27)
PROC: 0T9B70Z Drainage of Bladder with Drainage Device, Via Natural or Artificial Opening (ICD-10-PCS; principal; 2018-03-27)
PROC: 0SG00AJ Fusion of Lumbar Vertebral Joint with Interbody Fusion Device, Posterior Approach, Anterior Column, Open Approach (ICD-10-PCS; principal; 2018-03-27)
DX: M43.16 Spondylolisthesis, lumbar region (principal); M51.16 Intervertebral disc disorders with radiculopathy, lumbar region; M48.061 Spinal stenosis, lumbar region without neurogenic claudication; N35.9 Urethral stricture, unspecified; I48.91 Unspecified atrial fibrillation; E78.00 Pure hypercholesterolemia, unspecified; G47.00 Insomnia, unspecified; K21.9 Gastro-esophageal reflux disease without esophagitis; N40.0 Benign prostatic hyperplasia without lower urinary tract symptoms; M17.12 Unilateral primary osteoarthritis, left knee; Z96.651 Presence of right artificial knee joint; Z79.01 Long term (current) use of anticoagulants
CPT/HCPCS: 36415; 72100; 76000; 80048; 85025; 86850; 86900; 86901; J0690; J1170; J1580; J1885; J2250; J2405; J3010; J3370; J7030